=== PATIENT | male | born 1990 | race Caucasian/White ===

== ENCOUNTER 2024-08-01 21:28 | Observation (INO) ==
[2024-08-01 22:13] LABS: ABS Basophils 0.1 10^3/uL (0.0-0.1); ABS Eosinophils 0.3 10^3/uL (0.0-0.5); ABS Lymphocytes 3.3 10^3/uL (1.0-4.8); ABS Monocytes 0.6 10^3/uL (0.0-1.1); ABS Neutrophils 4.4 10^3/uL (1.5-7.6); ABS Nucleated RBC 0.01 10^3/ul; Eosinophil % 3.1 %; Hematocrit 39.9 % (38-53); Hemoglobin 13.4 g/dL (13.2-16.3); Lymphocyte % 38.1 %; Mean Corpuscular Hgb Conc 33.5 g/dL (31-36); Mean Corpuscular Volume 80.6 fL (80-97); Mean Platelet Volume 8.6 fL (7.5-11.2); Nucleated Red Blood Cells % 0.1 %/100WBC (0.0-0.8); Platelet Count 263 10^3/uL (150-450); Red Blood Count 4.95 10^6/uL (4.06-5.63); Red Cell Distribution Width 14.5 % (12-17); White Blood Count 8.6 10^3/uL (3.6-10.2)
[2024-08-01 22:18] LABS: INR 0.94 (0.85-1.14)
[2024-08-01] MEDS: NS 0.9% 1000 ml BAG 1,000 ML IV ONE (22:22)
[2024-08-01 22:57] LABS: Albumin 4.3 g/dL (3.2-5.2); Albumin/Globulin Ratio 1.7 (1-3); Creatinine, Serum 1.2 mg/dL (0.67-1.17); Globulin 2.5 g/dL (2-4); Potassium 4.1 mmol/L (3.5-5.0); Total Bilirubin 0.3 mg/dL (0.2-1.0); Total Protein 6.8 g/dL (6.4-8.9); eGFR CKD-EPI 82.9 (>60)
[2024-08-01 23:47] LABS: High Sensitivity Troponin 1 Hr 27 pg/mL (<20)
[2024-08-02 00:41] LABS: High Sensitivity Troponin 3 Hr 37 pg/mL (<20)
[2024-08-02] MEDS: Iohexol 350 (CONTRAST) 500 ML MDV IV ONE ×2 (07:50→11:42)
[2024-08-02] MEDS ORDERED: Sulfur Hexaflouride MICROSPHR 25 MG VIAL IV PRN (12:50)
[2024-08-02 13:17] LABS: Urine Benzodiazepine Screen None Detected (None Detect); Urine Cannabinoids Screen Presumptive Positive (None Detect); Urine Opiates Screen None Detected (None Detect)
[2024-08-02] MEDS ORDERED: Morphine 2 MG/ML SYRINGE IV PRN ×2 (15:39→15:40)
[2024-08-02 17:09] LABS: HDL Cholesterol 49.3 mg/dL
[2024-08-03 07:35] LABS: Calcium 9.4 mg/dL (8.6-10.3); Creatinine, Serum 1.09 mg/dL (0.67-1.17); Magnesium 2.2 mg/dL (1.9-2.7); Potassium 4.6 mmol/L (3.5-5.0); eGFR CKD-EPI 93.1 (>60)
[2024-08-04 13:42] VITALS: BP 133/79
== END 2024-08-04 17:36 | disposition home or self-care (01) ==
LOC: ED 21:28 → EDHOLD 21:28 → SUATTDRO 08-02 12:53 → MEDTELE 08-02 13:59
PROVIDERS: ADMIT Internal Medicine; ATTEND Student in an Organized Health Care Education/Training Program